=== PATIENT | female | born 1960 | race Two or more races ===

== ENCOUNTER 2024-07-05 12:42 | Emergency (ER) | payer MEDICARE, MEDICAID, SELFPAY ==
[2024-07-05 12:43] VITALS: BMI 34.2
[2024-07-05 13:57] VITALS: BP 125/82; PULSE 94; RESP 20; TEMP 37.4; O2SAT 96
--- NOTE | 2024-07-05 14:19 | PD.EDRME ---
Rapid Medical Screening Exam RME Arrival date/time: 07/05/24 12:42 64-year-old female presents emergency department complaining of headache and generalized bodyaches. Chief Complaint: Headache Time Seen by Provider: 07/05/24 14:03 Vital signs: Vital Signs Temperature 99.3 F 07/05/24 13:57 Pulse Rate 94 07/05/24 13:57 Respiratory Rate 20 07/05/24 13:57 Blood Pressure 125/82 07/05/24 13:57 Pulse Oximetry (%) 96 07/05/24 13:57 Oxygen Delivery Method Room Air 07/05/24 13:57 Vital signs reviewed by provider: Yes
--- NOTE | 2024-07-05 14:20 | XR_ITS ---
Examination: CT brain head without contrast. 2-D sagittal coronal reconstructions Date and time of exam:July 05, 2024 1428 hrs. Indications: Generalized head pain with bodyaches today CTDI: vol (mGy):50.5 DLP: (mGycm):1021 Technique: Multiple CT axial sections of the brain have been obtained, 5 mm slice thickness. Contrast has not been administered. 2-D sagittal, coronal reconstructions have been obtained Low dose protocols were performed. One or more of the following dose reduction techniques were used; automated exposure control, adjustment of the mA and/or KV according to patient size, use of iterative reconstruction technique. Findings: No significant ventricular enlargement. Intra-axial or extra-axial hemorrhage density is not seen. No mass effect or midline shift Basal cisterns are not remarkable. Fourth ventricle is midline. Cranial vault intact. Significant sinusitis including acute right maxillary sinusitis Impression: Negative for acute hemorrhage, mass effect or midline shift
[2024-07-05] MEDS: ACETAMINOPHEN 500 MG TABLET 1000 MG PO (15:06)
--- NOTE | 2024-07-05 16:03 | PRELIM_ITS ---
CT scan of the head without intravenous contrast (axial sections with sagittal and coronal reformats) . July 05, 2024 1428 hoursClinical History: Headache.Findings:No evidence of intracranial hemorrh age, mass effect or midline shift. The ventricles and CSF spaces are unremarkable. The calvarium is u nremarkable. There is mild mucosal thickening in bilateral ethmoid and maxillary sinuses. The mastoid air cells are clear.Impression:No evidence of intracranial hemorrhage, mass effect or midline shift. Sinus disease as described above. Report Electronically Signed By: Tatiana Avelar 07/05/2024 4:03:07 P M [EST]
--- NOTE | 2024-07-05 16:26 | PD.EDHA ---
ED Headache RME/HPI General Chief Complaint: Headache Stated Complaint: HEADACHE SINCE LAST NIGHT Time Seen by Provider: 07/05/24 14:03 Source: patient Arrival date/time: 07/05/24 12:42 64-year-old female presents emergency department complaining of headache and generalized bodyaches. Limitations: no limitations RME / HPI RME / HPI Narrative: 07/05/24 12:42 64-year-old female presents emergency department complaining of headache and generalized bodyaches. Related Data Home Medications ?Medication ?Instructions ?Recorded ?Confirmed cholecalciferol (vitamin D3) 25 25 mcg PO DAILY 10/10/20 10/10/20 mcg (1,000 unit) capsule (Vitamin D3) folic acid 1 mg tablet 1 mg PO DAILY 10/10/20 10/10/20 methotrexate sodium 2.5 mg tablet 20 mg PO QWEEK 10/10/20 10/10/20 Previous Rx's ?Medication ?Instructions ?Recorded docusate sodium 100 mg capsule 100 mg PO QDAY #30 caps 10/12/20 (DOK) hydrocodone 5 mg-acetaminophen 325 1 tab PO Q6H PRN Pain Scale 1-3 10/12/20 mg tablet (Mild #40 tabs rivaroxaban 10 mg tablet (Xarelto) 10 mg PO Q24H #12 tabs 10/12/20 acetaminophen 500 mg capsule 500 mg PO Q6H PRN pain #30 caps 07/05/24 amoxicillin 875 mg tablet 875 mg PO BID 7 days #14 tabs 07/05/24 Allergies Allergy/AdvReac Type Severity Reaction Status Date / Time No Known Allergies Allergy Verified 07/05/24 12:45 Review of Systems Review of Systems Systems Reviewed: All systems reviewed, normal except as documented Constitutional Constitutional: Reports system reviewed and no additional complaints, except as documented, Reports body ache(s), Denies chills, Denies fever(s) and Reports headache(s) Eyes Eyes: Reports system reviewed and no additional complaints, except as documented and Denies change in vision ENT Ears, Nose, Mouth, and Throat: Reports system reviewed and no additional complaints, except as documented, Denies disequilibrium, Denies dizziness, Reports headache(s), Denies sore throat and Denies vertigo Cardiovascular Cardiovascular: Reports system reviewed and no additional complaints, except as documented, Denies chest pain and Denies dyspnea Respiratory Respiratory: Reports system reviewed and no additional complaints, except as documented, Denies chest congestion, Denies cough and Denies dyspnea Gastrointestinal Gastrointestinal: Reports system reviewed and no additional complaints, except as documented, Denies abdominal pain, Denies nausea and Denies vomiting Musculoskeletal Musculoskeletal: Reports system reviewed and no additional complaints, except as documented, Denies abnormal gait and Denies arthralgias Integumentary/Breasts Skin/Breast: Reports system reviewed and no additional complaints, except as documented, Denies erythema, Denies rash and Denies wounds Neurologic Neurologic: Reports system reviewed and no additional complaints, except as documented, Denies abnormal gait, Denies disequilibrium, Denies dizziness, Reports headache(s) and Denies vertigo Past Medical History Past Medical History NEUROLOGIC: Negative Neurological Disorders or Seizures CARDIAC: Negative Cardiac Disorders, Congestive Heart Failure, Edema or Cellulitis RESPIRATORY: Negative Chronic Obstructive Pulmonary Disease (COPD), Tuberculosis or Sleep Apnea GASTROINTESTINAL: Negative Gastrointestinal Disorders or Hepatitis GENITOURINARY: Negative Genitourinary Disorders or Renal Disease REPRODUCTIVE: Positive Previous Pregnancies (X7) MUSCULOSKELETAL: Positive Musculoskeletal Disorders and Arthritis ENDOCRINE: Positive Endocrine Disorders (PREDIABETIC); Negative Diabetes Mellitus Type 1 or Diabetes Mellitus Type 2 HEMATOLOGIC: Negative Blood Disorders OTHER HISTORY: Positive Chicken Pox and Measles; Negative Hospitalization, Autoimmune Disease, Shingles, Falls, Blood Transfusions, Blood Transfusion Reaction, Anesthesia Reactions, Organ Transplant, Chemotherapy, Radiation Therapy, MRSA, Mumps or Cancer Family History FAMILY HISTORY: Negative Family Psychiatric Problems, Family Respiratory Disorders, Family Cardiac Disorders, Family Gastrointestinal Problems, Family Cancer, Family Surgery or Family Anesthesia Reaction Surgical History SURGICAL: Negative Pacemaker, Ear Surgery, Abdominal Surgery, Nephrectomy, Joint Replacement or Organ Transplant Social History SMOKING STATUS: Never smoker ED Exam General Limitations: Present no limitations General appearance: Present alert and in no apparent distress Head Head exam: Present atraumatic Eye Eye exam: Present normal appearance, PERRL and EOMI ENT ENT exam: Present normal exam, normal oropharynx and mucous membranes moist Neck Neck exam: Present normal inspection, full ROM and trachea midline Chest Chest inspection: Present normal inspection and symmetric chest wall rise Respiratory Respiratory exam: Present normal lung sounds bilaterally Cardiovascular Cardiovascular exam: Present regular rate, normal rhythm and normal heart sounds Abdominal Exam Abdominal exam: Present soft and normal bowel sounds Extremities Exam Extremities exam: Present normal inspection and full ROM Back Exam Back exam: Present normal inspection and full ROM Neurological Exam Neurological exam: Present alert, oriented X3 and CN II-XII intact Psychiatric Psychiatric exam: Present normal affect and normal mood Skin Skin exam: Present warm, dry, intact and normal color Course Quality Measures none Orders Category Date Time Status Bedside Influenza A&B Antigen Test NOW Care 07/05/24 14:[address] head/brain wo con Stat Exams 07/05/24 14:20 Taken Acetaminophen Tab [Tylenol ES Tab] Med 07/05/24 14:20 Discontinued 1,000 mg PO X1 ONE Vital Signs Vital signs: Vital Signs Temperature 99.3 F 07/05/24 13:57 Pulse Rate 94 07/05/24 13:57 Respiratory Rate 20 07/05/24 13:57 Blood Pressure 125/82 07/05/24 13:57 Pulse Oximetry (%) 96 07/05/24 13:57 Oxygen Delivery Method Room Air 07/05/24 13:57 96% room air within normal limits Headache MDM Narrative MDM Narrative:: 64-year-old female presents emergency department complaining of headache and generalized bodyaches. Patient GCS of 15 with normal cranial nerve exam. CT scan was unremarkable other than sinusitis. Patient appears nontoxic and is hemodynamic stable. Patient treated with oral antibiotics. Follow-up with primary care provider return to emergency department for any worsening symptoms or as needed. Patient data External records reviewed:: [facility] previous records Clinical information provided by:: patient Social determinants that could affect healthcare access:: none Patient has the following chronic illnesses:: See chart How is presenting disease/condition affected by chronic disease/condition?: uneffected by Evaluation data The following diagnostics were reviewed and interpreted by me:: radiology exam(s) Lab and/or radiology exams considered but not ordered:: Ordered Interpretation Summary: Interpreted by me Medications / Prescriptions Medications or Prescriptions considered but not ordered:: Ordered Medication administrations:: Medication Administration History Discontinued Medications Acetaminophen (Acetaminophen 500 Mg Tablet) 1,000 mg PO X1 ONE Stop: 07/05/24 14:21 Last Admin: 07/05/24 15:06 Dose: 1,000 mg Documented By: [facility] Given Consultations Consultation(s) initiated? (list below): No Diagnosis Differential diagnosis headache: migraine, tension headache, subarachnoid hemorrhage, headache, sinusitis and postconcussion syndrome Most likely diagnosis given after review of the tests above:: Sinusitis Admission Indicated Admission indicated?: not indicated Admission Request Was there a request for admission?: No Disposition Plan Disposition Plan: Discharge Discharge Attestation Discharge Attestation: The patient and all family members were given an opportunity to ask questions and understood the discharge instructions. Discharge instructions specifically effects, indications for sooner follow up or return to the emergency department, and the expected course of current diagnosis. Patient condition: Stable Discharge Plan Plan Patient Disposition: HOME (Self Care) Disposition Comment: Stable Prescriptions/Referrals Prescriptions/Med Rec: New amoxicillin 875 mg tablet 875 mg PO BID 7 Days Qty: 14 0RF acetaminophen 500 mg capsule 500 mg PO Q6H PRN (Reason: pain) Qty: 30 0RF No Action methotrexate sodium 2.5 mg tablet 20 mg PO QWEEK Patient Comments: TAKE 8 TABLETS BY MOUTH EVERY WEEK- ALL AT ONCE ORALLY folic acid 1 mg tablet 1 mg PO DAILY Patient Comments: TAKE 1 TABLET BY MOUTH 3 TIMES A WEEK cholecalciferol (vitamin D3) [Vitamin D3] 25 mcg (1,000 unit) Capsule 25 mcg PO DAILY hydrocodone-acetaminophen 5-325 mg Tablet 1 tab PO Q6H MDD 4 PRN (Reason: Pain Scale 1-3 (Mild) Qty: 40 0RF docusate sodium [DOK] 100 mg Capsule 100 mg PO QDAY Qty: 30 0RF Xarelto 10 mg Tablet 10 mg PO Q24H Qty: 12 0RF Referrals: Netta Ferrer PA-C [Primary Care Provider] - In 1 week Problem List Clinical Impression: Sinusitis Patient/Caregiver Discharge Instructions Discharge Activity: activity as tolerated Education Materials: ED Sinusitis (Antibiotic Treatment) Additional Instructions: Drink plenty of water and get plenty of rest. Take antibiotics as prescribed. Take Tylenol as needed for pain. Follow-up with primary care provider in 2 to 3 days. Return to emergency department for any worsening symptoms or as needed. Print Language: Tajik Stand Alone Forms: Michela Award Info., Patient Portal Info Letter PAKO/JULIA Supervising Physician PAKO/JULIA Supervising Physician: Dr. Wesley
== END 2024-07-05 16:53 | disposition home or self-care (01) ==
PROVIDERS: Emergency Provider Emergency Medicine; PCP Physician Assistant
DX: J01.00 Acute maxillary sinusitis, unspecified (principal)
CPT/HCPCS: 70450; 87400; 87502; 99284; A9270

== ENCOUNTER → 2024-07-28 | Outpatient (CLI) | payer MEDICARE, SELFPAY ==
[2024-07-27 15:35] LABS: Basophils % (Auto) 0 % (0-2.5); Eosinophils # (Auto) 0.3 Thou/mm3 (0.0-0.5); Eosinophils % (Auto) 5 % (0-10); Hematocrit 31.9 % (36.0-46.0); Hemoglobin 10.1 g/dL (12.0-16.0); Immature Granulocytes % (Auto) 0 % (0-0); Immature Granulocytes Auto 0.02 Thou/mm3 (0.00-0.00); Lymphocytes # (Auto) 2.2 Thou/mm3 (1.0-4.8); Lymphocytes % (Auto) 32 % (10-50); Mean Corpuscular HGB Conc 31.7 g/dl (31.0-37.0); Mean Corpuscular Hemoglobin 24.5 pg (25.0-35.0); Mean Corpuscular Volume 77 fL (80-100); Monocytes # (Auto) 0.6 Thou/mm3 (0.0-0.8); Monocytes % (Auto) 9 % (0-12); Neutrophils # (Auto) 3.7 Thou/mm3 (1.8-7.7); Neutrophils % (Auto) 54 % (37-80); Nucleated Red Blood Cell % 0 /100 WBC (0); Platelet Count 240 Thou/mm3 (140-440); RDW Standard Deviation 44.9 fL (36.4-46.3); Red Blood Count 4.12 Miln/mm3 (4.00-5.20); White Blood Count 6.9 Thou/mm3 (3.6-11.0)
[2024-07-27 15:43] LABS: INR 0.9 (0.9-1.3); Partial Thromboplastin Time 26.1 Seconds (22.0-36.0); Prothrombin Time 10.3 Seconds (9.0-12.2)
--- NOTE | 2024-07-28 09:30 | XR_ITS ---
Examinations: Ultrasound-guided percutaneous biopsy right axillary lymph node INDICATIONS: Right breast sonogram 04/06/2024 BI-RADS 4 abnormal right axillary lymph node Exam date and time: July 28, 2024 0930 hours. Informed consent provided. Technique: A timeout was completed verifying correct patient, procedure, site, positioning, and special equipment if applicable Informed consent provided. The patient was placed in a supine position for the axillary node biopsy Sonographic images of the axilla were performed for localization of the suspicious nodule The patient's axilla was prepped and draped in sterile fashion. Maximum sterile barrier technique, hand hygiene, ultrasound sterile technique 1% lidocaine utilized for local anesthesia Utilizing ultrasonographic guidance, 8 core biopsies were obtained of the axillary mass utilizing an 18-gauge BioPince needle. The specimens appears satisfactory. US guided breast axillary marker placement. Estimated blood loss 3 cc. The patient tolerated the procedure well and there were no complications. Impression: Successful ultrasound-guided percutaneous biopsy suspicious axillary lymph node Ultrasound guided axillary biopsy marker placement.
== END | disposition home or self-care (01) ==
PROVIDERS: Radiology Diagnostic Radiology; PCP Nurse Practitioner Family; Referring Provider Nurse Practitioner Family; Visit Provider Nurse Practitioner Family
DX: R92.8 Other abnormal and inconclusive findings on diagnostic imaging of breast (principal); Z01.812 Encounter for preprocedural laboratory examination
CPT/HCPCS: 19083; 36415; 85025; 85610; 85730; A4648